=== PATIENT | male | born 1970 | race Caucasian/White ===

== ENCOUNTER 2017-11-05 20:44 | Emergency (ER) | payer MEDICARE ==
[2015-12-04 13:25] VITALS: BMI 19.3
[~2017-11-05 20:44] MED LIST: ADDERALL 30 MG30 MG PO; BACTRIM DS TABL1 TAB PO; CELEXA40 MG PO; CLEOCIN HCL300 MG PO; CONCERTA; CUBICIN500 MG IV; NORCO 7.5/325 T1 TA1 PO; XANAX2 MG PO
== END 2017-11-05 22:00 | disposition home or self-care (01) ==
LOC: D.ER 20:44
DX: L03.312 Cellulitis of back [any part except buttock and flank] (principal); F17.200 Nicotine dependence, unspecified, uncomplicated

== ENCOUNTER 2017-12-24 12:44 | Inpatient (IN) | payer MEDICARE ==
[~2017-12-24] VITALS: Ht 167.6 cm; Wt 53.5 kg
[2017-12-24 14:04] LABS: BASOPHILS 0.2 % (0-2); EOSINOPHILS 0 % (0-7); HEMATOCRIT 27.4 % (42.0-54.0); HEMOGLOBIN 8.6 g/dL (13.5-17.5); IMMATURE GRANULOCYTES 0.5 % (0-5); LYMPHOCYTES 19.7 % (15-50); MCH 24.7 pg (26.0-34.0); MCHC 31.4 g/dL (31.0-37.0); MCV 78.7 fL (80.0-100.0); MEAN PLATELET VOLUME 8.6 fL (7.4-10.4); MONOCYTES 10.8 % (2-11); NEUTROPHILS 68.8 % (40-80); PLATELET COUNT 241 10x3/uL (130-400); RBC 3.48 10x6/uL (4.20-6.10); RDW 15.2 % (11.5-14.5); WBC 5.8 10x3/uL (4.8-10.8)
[2017-12-24 14:07] LABS: INR 1.01 (0.85-1.17); PROTIME 12.9 SECONDS (11.6-15.0)
[2017-12-24 14:18] LABS: ALKALINE PHOSPHATASE 86 U/L (46-116); ALT (SGPT) 21 U/L (10-68); CALC OSMOLALITY 273 mosm/kg (275-300); CALCIUM 8.1 mg/dL (8.5-10.1); CARBON DIOXIDE 26.5 mmol/L (21.0-32.0); CHLORIDE - SERUM 101 mmol/L (98-107); CREATININE - SERUM 0.7 mg/dL (0.6-1.3); GLUCOSE 110 mg/dL (74-106); MAGNESIUM - SERUM 1.9 mg/dL (1.8-2.4); POTASSIUM - SERUM 3.6 mmol/L (3.5-5.1); PROTEIN - SERUM 7.1 g/dL (6.4-8.2); SODIUM 136 mmol/L (136-145); UREA NITROGEN 15 mg/dL (7-18); eGFR NON AFRICAN AMERICAN > 90 mL/min (90-120)
[2017-12-25 00:35] VITALS: BP 113/66
[2017-12-25 02:33] VITALS: BMI 19.4
[2017-12-25 04:00] VITALS: BP 106/64
[2017-12-25 08:35] VITALS: BP 106/55
[2017-12-25 12:41] VITALS: BP 108/54
[2017-12-25 13:16] VITALS: Ht 167.6 cm; Wt 53.5 kg
[2017-12-25 18:58] VITALS: BP 130/89
[2017-12-26] VITALS (13 sets, daily range): BP systolic 91–134; BP diastolic 47–85
[2017-12-26 05:52] LABS: HEMATOCRIT 33.3 % (42.0-54.0); MCH 26.1 pg (26.0-34.0); MCV 78.9 fL (80.0-100.0); MEAN PLATELET VOLUME 8.9 fL (7.4-10.4); RBC 4.22 10x6/uL (4.20-6.10); RDW 14.6 % (11.5-14.5); WBC 5.8 10x3/uL (4.8-10.8)
[2017-12-27] VITALS: BP 120/66
[2017-12-27 04:00] VITALS: BP 124/78
[2017-12-27 04:42] LABS: HEMATOCRIT 33.3 % (42.0-54.0); MCH 26.1 pg (26.0-34.0); MCV 78.9 fL (80.0-100.0); MEAN PLATELET VOLUME 8.7 fL (7.4-10.4); RBC 4.22 10x6/uL (4.20-6.10); RDW 14.8 % (11.5-14.5); WBC 6.4 10x3/uL (4.8-10.8)
[2017-12-27 07:03] VITALS: BP 130/82
[2017-12-27] MEDS ORDERED: ELIQUIS2.5 MG PO (08:13)
[2017-12-27] MEDS ORDERED: HYDROCODONE-APA1 TAB PO (08:13)
[2017-12-27 11:10] VITALS: BP 127/82
[2017-12-27 15:07] VITALS: BP 115/75
[2017-12-27 23:37] VITALS: BP 103/63
[2017-12-28 04:00] VITALS: BP 107/76
[2017-12-28 09:23] VITALS: BP 111/61
[2017-12-28 11:43] VITALS: BP 118/82
[2017-12-28 16:00] VITALS: BP 118/78
[2017-12-28 20:00] VITALS: BP 125/83
[2017-12-29 04:00] VITALS: BP 116/81
[2017-12-29 09:14] VITALS: BP 112/82
[2017-12-29 12:55] VITALS: BP 120/83
== END 2017-12-29 14:30 | DRG 480 ==
LOC: D.ER 12:44 → D.SDCHOLD 13:26 → D.MS 13:26 → D.M2 21:31 → D.MS 12-25 18:41
PROVIDERS: Emergency Medicine; Orthopaedic Surgery
PROC: 0QH736Z Insertion of Intramedullary Internal Fixation Device into Left Upper Femur, Percutaneous Approach (ICD-10-PCS; principal; 2017-12-25 14:30)
DX: S72.145A Nondisplaced intertrochanteric fracture of left femur, initial encounter for closed fracture (principal); B20 Human immunodeficiency virus [HIV] disease; F17.203 Nicotine dependence unspecified, with withdrawal; W17.89XA Other fall from one level to another, initial encounter; D64.9 Anemia, unspecified; B19.20 Unspecified viral hepatitis C without hepatic coma; F90.9 Attention-deficit hyperactivity disorder, unspecified type; F31.9 Bipolar disorder, unspecified; F25.9 Schizoaffective disorder, unspecified

== ENCOUNTER 2018-01-14 10:02 | Inpatient (IN) | payer MEDICARE ==
[~2018-01-14] VITALS: Ht 167.6 cm; Wt 53.1 kg
--- NOTE | ~2018-01-14 | OP ---
PATIENT NAME: MESFIN WARD MEDICAL RECORD: [id number] :72 LOCATION:[id number] ADMISSION DATE:01/14/18 SURGEON: NUPUR BURGOS MD DATE OF OPERATION: 01/15/2018 PREOPERATIVE DIAGNOSES: 1. Infected wound of the left hip. 2. AIDS. 3. Hepatitis. POSTSOPERATIVE DIAGNOSES: 1. Infected wound of the left hip. 2. AIDS. 3. Hepatitis. PROCEDURE: I&D of the infected wound of the left hip. SURGEON: Nupur Burgos MD ANESTHESIA: General. INTRAOPERATIVE COMPLICATIONS: None. SUMMARY OF PATHOLOGIC FINDINGS: The wound had cleared traumatically on IV antibiotics. In total, the wound was approximately 20 cm and required packing only. OPERATIVE SUMMARY IN DETAIL: After obtaining the appropriate preoperative orthopedic surgery consent as well as anesthetic consultation, evaluation and clearance, the patient was brought to the operating room and placed on the operating table in supine position. After adequate general laryngeal mask airway was administered, the patient was placed in a right lateral decubitus position. All pressure points were well padded to include down leg peroneal pad as well as axillary roll. The patient was held firmly to the operating table using vacuum pack suction system. The left hip was prepped and draped in a routine sterile fashion. A combination of curettage, scalpel, and rongeur debridement was utilized down to the patient's fascia. This includes skin, subcutaneous tissue, portions of fat, fascia, muscle. Copious irrigation was used to clear any nonviable-appearing tissue and at this point, half inch iodoform gauze was used to pack the wound open. Sterile dressings were applied. The patient was awakened and taken to the recovery room in stable condition. All final needle and sponge counts were correct. TRANSINT:[id number] Voice Confirmation ID: [id number] DOCUMENT ID: [id number] NUPUR BURGOS MD at 0826 CC: [id number] DICTATION DATE: 01/18/18 1157 FILENET ARCHITECT: 01/18/18 1536 [place] [address]
--- NOTE | ~2018-01-14 | EC ---
PATIENT:MESFIN WARD DATE OF SERVICE: 01/14/18 SEX: M MEDICAL RECORD: [id number] DATE OF : 72 LOCATION:[facility] AGE OF PATIENT: 47 ADMISSION DATE: 01/14/18 REFERRING PHYSICIAN: INTERPRETING PHYSICIAN: KAMRAN ARGUELLO MD ECHOCARDIOGRAM REPORT ECHO CHARGES 4 ECHO COMPLETE CLINICAL DIAGNOSIS: ASSESS FOR VEGATATION ECHOCARDIOGRAPHIC MEASUREMENTS (adult normal given) AC root (d.<3.7cm) 2.7 cm LV Septum d (<1.2 cm> 1.1 cm Valve Excursion 1.5 cm LV Septum (systole) 1.3 cm Left Atria (s.<4.0cm> 3.0 cm LVPW d(<1.2cm) 1.1 cm RV (d.<2.3cm) 3.5 cm LVPW (sytole) 1.6 cm LV diastole(<5.6CM) 4.6 cm MV E-F(>70mm/sec) cm LV systole 3.3 cm LVOT Diameter 1.5 cm MV exc.(>10mm) 1.5 cm Est.ejection fraction (50-75%) % Pericardial Effusion N DOPPLER: LVIT cm/sec A 103 cm/sec E 84.0 cm/sec LA cm/sec RVSP 22 mmHg LVOT 108 cm/sec AOP1/2T m/s Asc. Ao 159 cm/sec RVOT 66 cm/sec RA cm/sec PA 115 cm/sec AV Gradient Peak 10.06mmHg AV Mean 5.33 mmHg AV Area 1.2 cm MV Gradient Peak 4.89 mmHg MV Mean 2.20 mmHg MV Area cm COMMENTS: Customer Service Officer: Brody FIERRO Outside Contractor Sales: 2 Dr. Lin TAPE# PACS DATE OF SERVICE: 01/15/2018 PROCEDURE: Transthoracic echocardiogram. FINDINGS: 1. Left ventricle is normal size, normal structure, and normal function. The patient has mild left ventricular hypertrophy with evidence of diastolic dysfunction. Ejection fraction of 65%. 2. The left atrium is normal size, normal function. 3. The aortic valve is normal. ECHOCARDIOGRAM REPORT [id number] MESFIN WARD 4. The mitral valve is normal. 5. The tricuspid valve has trace tricuspid regurgitation. RVSP is normal. 6. Pulmonic valve is normal. 7. The right atrium is mildly enlarged. 8. The right ventricle is mildly enlarged. CONCLUSIONS: The patient has evidence of mild hypertensive heart disease, mild dilatation of the right-sided structures. TRANSINT:[id number] Voice Confirmation ID: [id number] DOCUMENT ID: [id number] 01/26/2018 Edited to correct date of service, dmm. KAMRAN ARGUELLO MD at 1001 CC: [id number] DICTATION DATE: 01/16/182058 STOKER INSTALLER: 01/17/18 0054 DIS IN 01/20/18 [facility] [address] [place] [address]
[~2018-01-14 10:02] MED LIST changes: +ELIQUIS2.5 MG PO; +HYDROCODONE-APA1 TAB PO
[2018-01-14 13:14] LABS: BASOPHILS 0.5 % (0-2); EOSINOPHILS 4.6 % (0-7); HEMATOCRIT 29.5 % (42.0-54.0); HEMOGLOBIN 9.4 g/dL (13.5-17.5); IMMATURE GRANULOCYTES 0.5 % (0-5); LYMPHOCYTES 27.7 % (15-50); MCH 24.9 pg (26.0-34.0); MCHC 31.9 g/dL (31.0-37.0); MEAN PLATELET VOLUME 8.6 fL (7.4-10.4); NEUTROPHILS 57.7 % (40-80); RBC 3.78 10x6/uL (4.20-6.10); RDW 15.9 % (11.5-14.5); WBC 4.3 10x3/uL (4.8-10.8)
[2018-01-14 13:26] LABS: PLATELET COUNT 332 10x3/uL (130-400)
[2018-01-14 13:33] LABS: C-REACTIVE PROTEIN 7.3 mg/dL (0.0-0.9); CALC OSMOLALITY 262 mosm/kg (275-300); CALCIUM 8.7 mg/dL (8.5-10.1); CHLORIDE - SERUM 97 mmol/L (98-107); CREATININE - SERUM 0.7 mg/dL (0.6-1.3); GLUCOSE 87 mg/dL (74-106); POTASSIUM - SERUM 4.1 mmol/L (3.5-5.1); SODIUM 133 mmol/L (136-145); UREA NITROGEN 8 mg/dL (7-18); eGFR NON AFRICAN AMERICAN > 90 mL/min (90-120)
[2018-01-14 15:07] LABS: ERYTHROCYTE SEDIMENTATION RATE 113 mm/hr (0-15)
[2018-01-14 16:50] VITALS: BP 117/74
[2018-01-14 17:26] LABS: % SATURATION 9 % (15-55); IRON 22 ug/dl (35-150); TOTAL IRON BIND CAPACITY 221 ug/dl (260-445); UNSAT IRON BIND CAPACITY 199 ug/dl (150-375)
[2018-01-14 18:59] VITALS: BP 118/72; BMI 18.9
[2018-01-14 20:00] VITALS: BP 149/81
[2018-01-15] VITALS (7 sets, daily range): BP systolic 102–118; BP diastolic 66–82; Ht 167.6 cm; Wt 53.1 kg
[2018-01-15 05:43] LABS: BASOPHILS 0.5 % (0-2); EOSINOPHILS 2.7 % (0-7); HEMATOCRIT 29.5 % (42.0-54.0); HEMOGLOBIN 9.3 g/dL (13.5-17.5); IMMATURE GRANULOCYTES 0.5 % (0-5); LYMPHOCYTES 32.1 % (15-50); MCH 24.7 pg (26.0-34.0); MCHC 31.5 g/dL (31.0-37.0); MCV 78.5 fL (80.0-100.0); MEAN PLATELET VOLUME 8.7 fL (7.4-10.4); MONOCYTES 8.2 % (2-11); PLATELET COUNT 347 10x3/uL (130-400); RBC 3.76 10x6/uL (4.20-6.10); RDW 16.2 % (11.5-14.5); WBC 4.1 10x3/uL (4.8-10.8)
[2018-01-15 06:15] LABS: ALBUMIN 1.5 g/dL (3.4-5.0); ALKALINE PHOSPHATASE 124 U/L (46-116); ALT (SGPT) 12 U/L (10-68); BILIRUBIN - TOTAL 0.28 mg/dL (0.2-1.3); CALC OSMOLALITY 269 mosm/kg (275-300); CALCIUM 8.6 mg/dL (8.5-10.1); CARBON DIOXIDE 28.5 mmol/L (21.0-32.0); CHLORIDE - SERUM 102 mmol/L (98-107); CREATININE - SERUM 0.6 mg/dL (0.6-1.3); GLUCOSE 89 mg/dL (74-106); MAGNESIUM - SERUM 1.6 mg/dL (1.8-2.4); PHOSPHOROUS 4.5 mg/dL (2.5-4.9); PROTEIN - SERUM 7.4 g/dL (6.4-8.2); SODIUM 136 mmol/L (136-145); UREA NITROGEN 10 mg/dL (7-18); eGFR NON AFRICAN AMERICAN > 90 mL/min (90-120)
[2018-01-15 16:18] LABS: BASOS 1 % (Not Estab.); CD4 - % CD4 POS. LYMPH 19.5 % (30.8-58.5); CD4 - ABSOLUTE CD4 HELPER 215 /uL (359-1519); EOS 4 % (Not Estab.); EOS (ABSOLUTE) 0.2 x10E3/uL (0.0-0.4); HEMATOCRIT 29.2 % (37.5-51.0); HEMOGLOBIN 9.3 g/dL (13.0-17.7); LYMPHS 28 % (Not Estab.); LYMPHS (ABSOLUTE) 1.1 x10E3/uL (0.7-3.1); MCH 24.7 pg (26.6-33.0); MCHC 31.8 g/dL (31.5-35.7); MCV 78 fL (79-97); MONOCYTES 10 % (Not Estab.); MONOCYTES (ABSOLUTE) 0.4 x10E3/uL (0.1-0.9); NEUTROPHILS 56 % (Not Estab.); NEUTROPHILS (ABSOLUTE) 2.3 x10E3/uL (1.4-7.0); PLATELETS 373 x10E3/uL (150-379); RBC 3.76 x10E6/uL (4.14-5.80); RDW 16.7 % (12.3-15.4)
[2018-01-16] VITALS: BP 126/78
[2018-01-16 04:00] VITALS: BP 102/66
[2018-01-16 04:10] LABS: APPEARANCE CLEAR (CLEAR); COLOR YELLOW (YELLOW)
[2018-01-16 04:11] LABS: BILIRUBIN NEGATIVE (NEGATIVE); GLUCOSE NEGATIVE (NEGATIVE); KETONE NEGATIVE (NEGATIVE); NITRITE NEGATIVE (NEGATIVE); PROTEIN NEGATIVE (NEGATIVE); SPECIFIC GRAVITY 1.015 (1.005-1.020); UROBILINOGEN NORMAL (NORMAL)
[2018-01-16 04:14] LABS: CREATININE - URINE 86.8 mg/dL (30-125); PROTEIN - URINE 17.7 mg/dL (0.0-11.9)
[2018-01-16 04:16] LABS: UDS - AMPHET POSITIVE QUAL (NEGATIVE); UDS - BARB NEGATIVE QUAL (NEGATIVE); UDS - BENZO POSITIVE QUAL (NEGATIVE); UDS - COCAINE NEGATIVE QUAL (NEGATIVE); UDS - OPIATE POSITIVE QUAL (NEGATIVE); UDS - PCP NEGATIVE QUAL (NEGATIVE); UDS - THC NEGATIVE QUAL (NEGATIVE)
[2018-01-16 05:34] LABS: BASOPHILS 0.6 % (0-2); EOSINOPHILS 2.3 % (0-7); HEMATOCRIT 32.7 % (42.0-54.0); HEMOGLOBIN 9.9 g/dL (13.5-17.5); IMMATURE GRANULOCYTES 0.6 % (0-5); LYMPHOCYTES 20.1 % (15-50); MCH 24.5 pg (26.0-34.0); MCHC 30.3 g/dL (31.0-37.0); MONOCYTES 6.5 % (2-11); NEUTROPHILS 69.9 % (40-80); RBC 4.04 10x6/uL (4.20-6.10); RDW 16.6 % (11.5-14.5); WBC 4.8 10x3/uL (4.8-10.8)
[2018-01-16 05:42] LABS: MCV 80.9 fL (80.0-100.0); PLATELET COUNT 217 10x3/uL (130-400)
[2018-01-16 06:14] LABS: ALBUMIN 1.5 g/dL (3.4-5.0); ALKALINE PHOSPHATASE 217 U/L (46-116); CALC OSMOLALITY 266 mosm/kg (275-300); CHLORIDE - SERUM 100 mmol/L (98-107); CREATININE - SERUM 0.5 mg/dL (0.6-1.3); GLUCOSE 100 mg/dL (74-106); POTASSIUM - SERUM 4.2 mmol/L (3.5-5.1); PROTEIN - SERUM 6.6 g/dL (6.4-8.2); SODIUM 134 mmol/L (136-145); UREA NITROGEN 9 mg/dL (7-18); eGFR NON AFRICAN AMERICAN > 90 mL/min (90-120)
[2018-01-16 06:15] LABS: ALT (SGPT) 18 U/L (10-68)
[2018-01-16 08:12] VITALS: BP 113/72
[2018-01-16] MEDS ORDERED: BACTRIM DS TABL1 TAB PO (08:19)
[2018-01-16] MEDS ORDERED: DOXYCYCLINE HY100 M2 PO (08:20)
[2018-01-16 12:30] VITALS: BP 105/63; BP 125/79
[2018-01-16 20:00] VITALS: BP 110/74
[2018-01-17] VITALS: BP 121/75
[2018-01-17 04:00] VITALS: BP 129/78
[2018-01-17 07:06] VITALS: BP 118/79
[2018-01-17 11:04] VITALS: BP 106/64
[2018-01-17 15:11] VITALS: BP 109/76
[2018-01-17 21:12] VITALS: BP 116/81
[2018-01-18 00:59] VITALS: BP 113/73
[2018-01-18 05:05] VITALS: BP 117/74
[2018-01-18 06:30] LABS: HEMATOCRIT 32.1 % (42.0-54.0); HEMOGLOBIN 10.2 g/dL (13.5-17.5); MCH 24.8 pg (26.0-34.0); MCHC 31.8 g/dL (31.0-37.0); MCV 77.9 fL (80.0-100.0); MEAN PLATELET VOLUME 8.6 fL (7.4-10.4); RBC 4.12 10x6/uL (4.20-6.10); RDW 16.1 % (11.5-14.5); WBC 4.8 10x3/uL (4.8-10.8)
[2018-01-18 06:31] LABS: PLATELET COUNT 286 10x3/uL (130-400)
[2018-01-18 06:38] LABS: CALC OSMOLALITY 266 mosm/kg (275-300); CALCIUM 9.1 mg/dL (8.5-10.1); CARBON DIOXIDE 30.8 mmol/L (21.0-32.0); CHLORIDE - SERUM 98 mmol/L (98-107); CREATININE - SERUM 0.6 mg/dL (0.6-1.3); GLUCOSE 74 mg/dL (74-106); POTASSIUM - SERUM 3.8 mmol/L (3.5-5.1); SODIUM 135 mmol/L (136-145); UREA NITROGEN 7 mg/dL (7-18); eGFR NON AFRICAN AMERICAN > 90 mL/min (90-120)
[2018-01-18 07:17] LABS: EOSINOPHILS 1 % (0-7); LYMPHOCYTES 47 % (15-50); NEUTROPHILS 49 % (40-80)
[2018-01-18 07:19] LABS: HYPOCHROMASIA 1+
[2018-01-18 07:20] LABS: PLATELET ESTIMATE NORMAL; ROULEAUX OCC
[2018-01-18 08:18] VITALS: BP 114/71
[2018-01-18 12:42] VITALS: BP 110/77
[2018-01-18 16:22] VITALS: BP 114/70
[2018-01-18 21:31] VITALS: BP 115/80
[2018-01-19 00:50] VITALS: BP 124/77
[2018-01-19 05:43] VITALS: BP 134/74
[2018-01-19 09:59] VITALS: BP 114/74
[2018-01-19 11:55] VITALS: BP 120/76
[2018-01-19 12:15] LABS: BASOPHILS 0.6 % (0-2); EOSINOPHILS 2.8 % (0-7); HEMATOCRIT 32.8 % (42.0-54.0); HEMOGLOBIN 10.4 g/dL (13.5-17.5); IMMATURE GRANULOCYTES 0.6 % (0-5); MCH 24.8 pg (26.0-34.0); MCHC 31.7 g/dL (31.0-37.0); MCV 78.3 fL (80.0-100.0); MEAN PLATELET VOLUME 8.6 fL (7.4-10.4); MONOCYTES 6.9 % (2-11); NEUTROPHILS 48.1 % (40-80); PLATELET COUNT 230 10x3/uL (130-400); RBC 4.19 10x6/uL (4.20-6.10); RDW 16.8 % (11.5-14.5); WBC 3.6 10x3/uL (4.8-10.8)
[2018-01-19 12:44] LABS: ALBUMIN 1.7 g/dL (3.4-5.0); ALKALINE PHOSPHATASE 684 U/L (46-116); ALT (SGPT) 64 U/L (10-68); BILIRUBIN - TOTAL 0.19 mg/dL (0.2-1.3); CALC OSMOLALITY 270 mosm/kg (275-300); CALCIUM 8.4 mg/dL (8.5-10.1); CARBON DIOXIDE 27.6 mmol/L (21.0-32.0); CHLORIDE - SERUM 100 mmol/L (98-107); CREATININE - SERUM 0.7 mg/dL (0.6-1.3); GLUCOSE 95 mg/dL (74-106); SODIUM 135 mmol/L (136-145); UREA NITROGEN 14 mg/dL (7-18); eGFR NON AFRICAN AMERICAN > 90 mL/min (90-120)
[2018-01-19 16:48] VITALS: BP 128/74
[2018-01-19 20:00] VITALS: BP 124/75
[2018-01-20 04:00] VITALS: BP 132/78
[2018-01-20 07:37] LABS: BASOPHILS 0.5 % (0-2); EOSINOPHILS 1.2 % (0-7); HEMATOCRIT 30.5 % (42.0-54.0); HEMOGLOBIN 9.6 g/dL (13.5-17.5); IMMATURE GRANULOCYTES 0.7 % (0-5); LYMPHOCYTES 44.1 % (15-50); MCH 24.6 pg (26.0-34.0); MCHC 31.5 g/dL (31.0-37.0); MEAN PLATELET VOLUME 8.7 fL (7.4-10.4); MONOCYTES 7.8 % (2-11); NEUTROPHILS 45.7 % (40-80); PLATELET COUNT 250 10x3/uL (130-400); RBC 3.91 10x6/uL (4.20-6.10); RDW 17.4 % (11.5-14.5); WBC 4.1 10x3/uL (4.8-10.8)
[2018-01-20 07:57] LABS: ALBUMIN 1.7 g/dL (3.4-5.0); ALKALINE PHOSPHATASE 526 U/L (46-116); BILIRUBIN - TOTAL 0.19 mg/dL (0.2-1.3); CALCIUM 8.5 mg/dL (8.5-10.1); CARBON DIOXIDE 26.3 mmol/L (21.0-32.0); CHLORIDE - SERUM 99 mmol/L (98-107); CREATININE - SERUM 0.7 mg/dL (0.6-1.3); POTASSIUM - SERUM 3.4 mmol/L (3.5-5.1); PROTEIN - SERUM 7.2 g/dL (6.4-8.2); SODIUM 134 mmol/L (136-145); eGFR NON AFRICAN AMERICAN > 90 mL/min (90-120)
[2018-01-20 07:58] LABS: ALT (SGPT) 46 U/L (10-68); CALC OSMOLALITY 269 mosm/kg (275-300); GLUCOSE 160 mg/dL (74-106); UREA NITROGEN 10 mg/dL (7-18)
[2018-01-20 08:51] VITALS: BP 125/71
[2018-01-20 13:24] VITALS: BP 106/74
== END 2018-01-20 13:40 | DRG 856 ==
LOC: D.SDCHOLD 10:02 → D.MS 10:02
PROVIDERS: Family Medicine; Internal Medicine Nephrology; Orthopaedic Surgery
PROC: 0KBR0ZZ Excision of Left Upper Leg Muscle, Open Approach (ICD-10-PCS; principal; 2018-01-15 16:15)
DX: T81.4XXA Infection following a procedure, initial encounter (principal); E43 Unspecified severe protein-calorie malnutrition; E87.1 Hypo-osmolality and hyponatremia; Z68.1 Body mass index [BMI] 19.9 or less, adult; L08.9 Local infection of the skin and subcutaneous tissue, unspecified; D64.9 Anemia, unspecified; F43.10 Post-traumatic stress disorder, unspecified; F25.9 Schizoaffective disorder, unspecified; H54.7 Unspecified visual loss; B19.20 Unspecified viral hepatitis C without hepatic coma; Z21 Asymptomatic human immunodeficiency virus [HIV] infection status; G40.909 Epilepsy, unspecified, not intractable, without status epilepticus; F17.200 Nicotine dependence, unspecified, uncomplicated